=== PATIENT | male | born 1950 | race Caucasian/White ===

== ENCOUNTER → 2020-08-06 | Day surgery (SDC) | payer BC ==
[~2020-08-06] MED LIST: Dexamethasone 4 MG/ML SDV ONE; Ketamine 200 MG/20 ML MDV ONE; Ketorolac 30 MG/ML SDV ONE; Lactated Ringers 1,000 ML IV SCH; Lidocaine 1% with EPINEPHrine 1:100,000 20 ML MDV ONE; Lidocaine 2% 5 ML SDV ONE; Midazolam 1 MG/ML 2 ML SDV ONE; Ondansetron 4 MG/2 ML SDV ONE; Phenylephrine 1% 10 MG/ML SDV ONE; Propofol 200 MG/20 ML SDV ONE; ceFAZolin 1 GM Vial IVPUSH ONE; ePHEDrine 50 MG/ML SDV ONE; fentaNYL 100 MCG/2 ML SDV ONE
--- NOTE | 2020-08-06 18:56 | OR ---
DATE OF OPERATION: 08/06/2020 PREOPERATIVE DIAGNOSIS: RIGHT INGUINAL HERNIA. POSTOPERATIVE DIAGNOSIS: RIGHT DIRECT INGUINAL HERNIA. SURGEON: Trevor Yarbrough MD PROCEDURE: OPEN REPAIR OF A RIGHT DIRECT INGUINAL HERNIA WITH MESH. ANESTHESIA: General. ESTIMATED BLOOD LOSS: Minimum. SPECIMEN: None. INDICATIONS: This 69-year-old male had a [id number] history of a bulge in the right groin. It is not overly painfully symptomatic, but he does notice that it is there, shows no signs of obstruction or bowel function change. DESCRIPTION OF PROCEDURE: After adequate preparation, an incision was made over the right groin and taken down through the external abdominal oblique to expose the inguinal canal. The inguinal cord structures were brought up out of the canal to reveal a hernia sac posteriorly in the direct space; did not have a sac, indicating an indirect inguinal hernia. A precut piece of Prolene mesh, 10 cm, was used to buttress the floor. This was sewn in place in a running fashion along the inguinal ligament and in an interrupted fashion along the inferior rectus sheath. The keyhole was fashioned around the cord structures, and then, 2 or 3 prolene sutures were used to close the keyhole at an appropriate size. 1% Xylocaine was used to infiltrate the surrounding inguinal ligament and external oblique layers. The external oblique was closed with a 2-0 Vicryl, as was Mary Ellen's fascia. A 4-0 Vicryl was used for the skin. BPB/ROBINL /[id number]
== END ==
LOC: CC.SDS 10:08
PROVIDERS: ATTEND Surgery
DX: K40.90 Unilateral inguinal hernia, without obstruction or gangrene, not specified as recurrent (principal); Z79.899 Other long term (current) drug therapy; Z01.812 Encounter for preprocedural laboratory examination; Z20.822 Contact with and (suspected) exposure to COVID-19
CPT/HCPCS: J0690; J1100; J1885; J2001; J2250; J2370; J2405; J2704; J3010; J7120; U0002

== ENCOUNTER 2025-06-05 06:32 | Day surgery (SDC) | payer BC ==
[2025-06-05] MEDS: Lactated Ringers 1,000 ML IV SCH (07:05)
[2025-06-05] MEDS ORDERED: Dexamethasone 4 MG/ML SDV ONE (07:30)
[2025-06-05] MEDS ORDERED: Propofol 200 MG/20 ML SDV ONE ×2 (07:30)
[2025-06-05] MEDS ORDERED: Ketamine 200 MG/20 ML MDV ONE (07:30)
[2025-06-05] MEDS ORDERED: fentaNYL 50 MCG/ML SDV ONE ×3 (07:30)
[2025-06-05] MEDS ORDERED: Midazolam 1 MG/ML 2 ML SDV ONE (07:30)
[2025-06-05] MEDS ORDERED: Ondansetron 4 MG/2 ML SDV ONE (07:30)
== END 2025-06-05 11:10 | disposition home or self-care (01) ==
LOC: CC.SDS 06:32
PROVIDERS: ATTEND Surgery
DX: K40.90 Unilateral inguinal hernia, without obstruction or gangrene, not specified as recurrent (principal); F17.210 Nicotine dependence, cigarettes, uncomplicated; Z79.899 Other long term (current) drug therapy
CPT/HCPCS: A9270-GY; J0665; J0690; J1100; J1596; J2250; J2405; J2704; J3010; J3490; J7120